=== PATIENT | male | born 1990 | race Caucasian/White ===

== ENCOUNTER 2021-07-31 15:16 | Outpatient (CLI) | payer OTHER | END 2021-07-31 15:17 | disposition home or self-care (01) | LOC: BICULT 15:16 | PROVIDERS: ATTEND Urology | DX: Z31.69 Encounter for other general counseling and advice on procreation (principal); R86.9 Unspecified abnormal finding in specimens from male genital organs; N43.40 Spermatocele of epididymis, unspecified; I86.1 Scrotal varices; N43.3 Hydrocele, unspecified | CPT/HCPCS: 76870; 93976 ==

== ENCOUNTER 2021-09-26 11:16 | Outpatient (CLI) | payer OTHER ==
[2021-09-26 11:59] LABS: Hemoglobin 14.9 g/dL (13.5-17.5); Mean Corpuscular HGB CONC 33.3 g/dL (32.0-36.0); Mean Corpuscular Hemoglobin 31.2 pg (27.0-33.0); Mean Corpuscular Volume 93.7 fl (81.2-95.1); Mean Platelet Volume 10.5 fl (7.4-10.4); Platelet Count 243 10x3/uL (150-450); RBC Distribution Width 12.9 % (11.5-14.5); Red Blood Cell (RBC) Count 4.77 10x6/uL (4.32-5.72); White Blood Cell (WBC) Count 7.5 10x3/uL (3.5-10.5)
[2021-09-26 12:01] LABS: Bilirubin Neg (Negative); Blood, Urine Negative (Negative); Clarity Slightly Cloudy (Clear); Glucose, Urine (Dipstick) Normal (Negative); Ketone, Urine Negative (Negative); Leukocyte Negative (Negative); Nitrite Negative (Negative); Protein, Urine (Dipstick) Negative (Neg-Trace); Specific Gravity, Urine 1.015 (1.002-1.036); Urobilinogen Normal mg/dL (Less than 2)
[2021-09-26 12:09] LABS: Bacteria/HPF None Seen HPF (None Seen); RBC/HPF 0-3 HPF (0-3); Squamous Epithelial 0-3 HPF (0-3); WBC/HPF 0-3 HPF (0-3)
[2021-09-26 12:21] LABS: INR-International Normal Ratio 0.9; PTT 25.3 sec (22.0-33.0)
[2021-09-26 12:22] LABS: Anion Gap 13 mmol/L (10-20); BUN (Urea Nitrogen) 15 mg/dL (8.9-20.6); Calc. Creatinine Clearance 0 mL/min (70-130); Calcium 10.2 mg/dL (7.8-10.44); Carbon Dioxide 28 mmol/L (22-29); Chloride 106 mmol/L (98-107); Estimated GFR 101; Glucose 101 mg/dL (70-105); Potassium 5.7 mmol/L (3.5-5.1); Sodium 141 mmol/L (136-145)
== END 2021-09-26 11:17 | disposition home or self-care (01) ==
LOC: LABBT 11:16
PROVIDERS: ATTEND Urology
DX: Z01.818 Encounter for other preprocedural examination (principal); I86.1 Scrotal varices; R35.0 Frequency of micturition; N43.40 Spermatocele of epididymis, unspecified; R86.9 Unspecified abnormal finding in specimens from male genital organs; F12.10 Cannabis abuse, uncomplicated; Z72.0 Tobacco use; Z31.69 Encounter for other general counseling and advice on procreation; Z20.822 Contact with and (suspected) exposure to COVID-19
CPT/HCPCS: 71046; 80048; 81001; 85027; 85610; 85730; 87086; 87811

== ENCOUNTER 2021-10-01 09:42 | Day surgery (SDC) | payer OTHER ==
[2021-09-27 15:20] VITALS: BMI 22.9
[2021-10-01] MEDS ORDERED: Midazolam HCl 2 mg/2 ml Vial ONE (11:32)
[2021-10-01] MEDS ORDERED: Bupivacaine 0.25% 10 ML VIAL ONE (13:14)
[2021-10-01] MEDS ORDERED: EPINEPHrine 1 MG/ML AMP ONE (13:14)
[2021-10-01] MEDS ORDERED: Dexmedetomidine 200 MCG/2 ML VIAL ONE (13:15)
[2021-10-01] MEDS ORDERED: fentaNYL Citrate/PF 100 MCG/2 ML SYRINGE ONE (13:15)
[2021-10-01] MEDS ORDERED: Sodium Chloride 0.9% 100 ML ONE (13:36)
[2021-10-01] MEDS ORDERED: CEFAZOLIN 2 GM VIAL ONE (13:36)
[2021-10-01] MEDS ORDERED: Ondansetron PF 4 MG/2 ML Vial ONE (13:41)
[2021-10-01] MEDS ORDERED: Phenylephrine 10 MG/ML VIAL ONE (13:41)
[2021-10-01] MEDS ORDERED: Ketorolac Tromethamine 30 MG/ML VIAL ONE (13:41)
[2021-10-01] MEDS ORDERED: PROPOFOL 200 MG/20 ML VIAL ONE (13:41)
[2021-10-01] MEDS ORDERED: Dexamethasone 20 MG/5 ML VIAL ONE (13:41)
[2021-10-01] MEDS ORDERED: ePHEDrine 50 MG/ML VIAL ONE (13:41)
[2021-10-01] MEDS ORDERED: Lidocaine 1% PF 5 ML VIAL ONE (13:41)
[2021-10-01] MEDS ORDERED: Papaverine 60 MG/2 ML VIAL ONE (14:00)
[2021-10-01] MEDS ORDERED: Fentanyl 100 MCG/2 ML VIAL ONE (15:37)
[2021-10-01] MEDS ORDERED: HYDROcodone/Acetaminophen 5/325 mg Tablet ONE ×2 (16:25)
== END 2021-10-01 17:00 | disposition home or self-care (01) ==
LOC: SDC 09:42
PROVIDERS: ATTEND Urology
PROC: 0VBG0ZZ Excision of Left Spermatic Cord, Open Approach (ICD-10-PCS; principal; 2021-10-01)
DX: I86.1 Scrotal varices (principal); N43.3 Hydrocele, unspecified; N43.40 Spermatocele of epididymis, unspecified; G71.00 Muscular dystrophy, unspecified; F10.21 Alcohol dependence, in remission; J45.909 Unspecified asthma, uncomplicated; F12.10 Cannabis abuse, uncomplicated; Z87.891 Personal history of nicotine dependence; Z79.899 Other long term (current) drug therapy
CPT/HCPCS: J0171; J0690; J1100; J1885; J2250; J2370; J2405; J2440; J2704; J3010; J3490; S0020

== ENCOUNTER 2022-01-28 14:49 | Outpatient (CLI) | payer OTHER | END 2022-01-28 14:50 | disposition home or self-care (01) | LOC: SCSMRI 14:49 | PROVIDERS: ATTEND Orthopaedic Surgery Hand Surgery | DX: S63.591A Other specified sprain of right wrist, initial encounter (principal); G93.0 Cerebral cysts; M65.861 Other synovitis and tenosynovitis, right lower leg | CPT/HCPCS: 70210 ==

== ENCOUNTER 2022-02-08 15:34 | Outpatient (CLI) | payer OTHER ==
[2022-02-08 16:05] LABS: #Basophils 0.1 10x3/uL (0.0-0.2); #Eosinphils 0.2 10x3/uL (0.0-0.5); #Monocytes 0.5 10x3/uL (0.0-1.1); #Neutrophils 6.8 10x3/uL (1.5-8.4); %Basophils 0.7 % (0.0-2.0); %Eosinophils 1.6 % (0.0-6.0); %Monocytes 5.5 % (0.0-10.0); %Neutrophils 69.8 % (40.0-75.0); Hemoglobin 14.2 g/dL (13.5-17.5); Mean Corpuscular HGB CONC 34.1 g/dL (32.0-36.0); Mean Corpuscular Hemoglobin 31.5 pg (27.0-33.0); Mean Corpuscular Volume 92.2 fl (81.2-95.1); Mean Platelet Volume 10.2 fl (7.4-10.4); Platelet Count 256 10x3/uL (150-450); RBC Distribution Width 12.9 % (11.5-14.5); Red Blood Cell (RBC) Count 4.51 10x6/uL (4.32-5.72); White Blood Cell (WBC) Count 9.7 10x3/uL (3.5-10.5)
== END 2022-02-08 15:35 | disposition home or self-care (01) ==
LOC: LABBT 15:34
PROVIDERS: ATTEND Orthopaedic Surgery Hand Surgery
DX: Z01.812 Encounter for preprocedural laboratory examination (principal); S63.591A Other specified sprain of right wrist, initial encounter
CPT/HCPCS: 85025

== ENCOUNTER 2022-02-12 06:18 | Day surgery (SDC) | payer OTHER ==
[2022-02-11 12:25] VITALS: BMI 23.6
[2022-02-12] MEDS ORDERED: Midazolam HCl 2 mg/2 ml Vial ONE ×2 (09:07→09:09)
[2022-02-12] MEDS ORDERED: fentaNYL PF 100 MCG/2 ML SYRINGE ONE (09:09)
[2022-02-12] MEDS ORDERED: EPINEPHrine 1 MG/ML AMP ONE (09:11)
[2022-02-12] MEDS ORDERED: Bacitracin Zinc Ointment 30 gm TUBE ONE (09:11)
[2022-02-12] MEDS ORDERED: Neomycin-Polymyxin 1 ML AMP ONE (09:11)
[2022-02-12] MEDS ORDERED: Bupivacaine PF 0.5% 30 ML VIAL ONE (09:11)
[2022-02-12] MEDS ORDERED: Sodium Chloride 0.9% 100 ML ONE (09:23)
[2022-02-12] MEDS ORDERED: CEFAZOLIN 2 GM VIAL ONE (09:23)
[2022-02-12] MEDS ORDERED: PROPOFOL 200 MG/20 ML VIAL ONE (09:39)
[2022-02-12] MEDS ORDERED: Ondansetron PF 4 MG/2 ML Vial ONE (09:39)
[2022-02-12] MEDS ORDERED: Dexamethasone 20 MG/5 ML VIAL ONE (09:39)
[2022-02-12] MEDS ORDERED: Ketorolac Tromethamine 30 MG/ML VIAL ONE (09:39)
[2022-02-12] MEDS ORDERED: Ropivacaine 0.5% HCl/PF (150 MG/30 ML VIAL) ONE (09:53)
[2022-02-12] MEDS ORDERED: Ropivacaine 0.2% HCl/PF 20 ML ONE (09:53)
[2022-02-12] MEDS ORDERED: HYDROcodone/Acetaminophen 5/325 mg Tablet ONE (12:54)
== END 2022-02-12 13:31 | disposition home or self-care (01) ==
LOC: SDC 06:18
PROVIDERS: ATTEND Orthopaedic Surgery Hand Surgery
DX: S63.591A Other specified sprain of right wrist, initial encounter (principal); M25.831 Other specified joint disorders, right wrist; M65.88 Other synovitis and tenosynovitis, other site; M67.431 Ganglion, right wrist; F10.21 Alcohol dependence, in remission; J45.909 Unspecified asthma, uncomplicated; Z87.891 Personal history of nicotine dependence; Z79.899 Other long term (current) drug therapy
CPT/HCPCS: C1713; J0171; J2250; J2795; J3490; S0020

== ENCOUNTER 2022-05-15 10:59 | Outpatient (CLI) | payer OTHER | END 2022-05-15 11:00 | disposition home or self-care (01) | LOC: BICCT 10:59 | PROVIDERS: ATTEND Orthopaedic Surgery Hand Surgery | DX: S52.201A Unspecified fracture of shaft of right ulna, initial encounter for closed fracture (principal); S52.201D Unspecified fracture of shaft of right ulna, subsequent encounter for closed fracture with routine healing ==

== ENCOUNTER 2023-11-29 22:11 | Emergency (ER) | payer OTHER ==
[2023-11-30] MEDS ORDERED: fentaNYL 50 mcg/mL 1 mL Vial ONE (02:38)
[2023-11-30] MEDS ORDERED: Morphine 4 MG/ML VIAL ONE (03:57)
[2023-11-30] MEDS ORDERED: Bupivacaine 0.25% 10 ML VIAL ONE (06:46)
[2023-11-30] MEDS ORDERED: Lidocaine 1% w/Epinephrine 1:100K 20 ML VIAL ONE (06:46)
[2023-11-30] MEDS ORDERED: GASTROGRAFIN 30 ML BOT ONE (09:50)
== END 2023-11-30 07:43 | disposition home or self-care (01) ==
LOC: ERS 22:11
DX: S31.119A Laceration without foreign body of abdominal wall, unspecified quadrant without penetration into peritoneal cavity, initial encounter (principal); F17.200 Nicotine dependence, unspecified, uncomplicated; W18.2XXA Fall in (into) shower or empty bathtub, initial encounter
CPT/HCPCS: 70450; 74177; 96374; 96375; J0665; J2272; J3010; Q9963

== ENCOUNTER 2024-02-19 14:57 | Outpatient (CLI) | payer OTHER | END 2024-02-19 14:58 | disposition home or self-care (01) | LOC: BICRAD 14:57 | DX: M25.562 Pain in left knee (principal) ==

== ENCOUNTER 2024-03-12 14:21 | Outpatient (CLI) | payer OTHER | END 2024-03-12 14:22 | disposition home or self-care (01) | LOC: BICMRI 14:21 | PROVIDERS: ATTEND Family Medicine | DX: M25.462 Effusion, left knee (principal) ==